=== PATIENT | male | born 1980 | race Two or more races ===

== ENCOUNTER 2021-04-26 08:33 | Emergency (ER) | payer SELFPAY ==
--- NOTE | ~2021-04-26 | XR_ITS ---
EXAMINATION: XR HAND, RIGHT CLINICAL INFORMATION: Pain COMPARISON: None TECHNIQUE: PA, lateral, and oblique views of the right hand. FINDINGS: There is no acute or healing fracture, dislocation or destructive process. The ulnar variance is neutral. There is normal bony mineralization. No periarticular demineralization. The carpus shows no joint narrowing or chondrocalcinosis. The MCP and interphalangeal joints are unremarkable. There is a prior amputation index finger just distal to the base middle phalanx. Surgical margins are corticated. No periostitis. No gas tracking in soft tissues. XR/XR hand RT min 3V IMPRESSION: No fracture, destructive process, or arthropathy.
[2021-04-26 08:54] VITALS: BP 121/85; PULSE 69; RESP 16; TEMP 36.4; O2SAT 100; BMI 21.2
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
== END 2021-04-26 11:05 | disposition home or self-care (01) ==
PROVIDERS: Emergency Provider Emergency Medicine
DX: L03.113 Cellulitis of right upper limb (principal); M79.641 Pain in right hand; Z79.899 Other long term (current) drug therapy
CPT/HCPCS: 73130; 99283